=== PATIENT | female | born 1950 | race Caucasian/White ===

== ENCOUNTER 2018-03-08 10:24 | Emergency (ER) | payer MEDICARE, OTHER ==
[2018-03-08 10:52] LABS: BASOPHILS % (AUTO) 0.7 % (0.0-5.0); EOSINOPHILS % (AUTO) 3.6 % (0.0-8.0); HEMATOCRIT 45.3 % (36-48); LYMPHOCYTES % (AUTO) 27.4 % (21.0-51.0); MEAN CORPUSCULAR HEMOGLOBIN 30.5 pg (27.0-33.0); MEAN CORPUSCULAR HGB CONC 33.4 g/dL (32.0-36.0); MEAN CORPUSCULAR VOLUME 91.2 fL (79-99); MONOCYTES % (AUTO) 9.9 % (3.0-13.0); NEUTROPHILS % (AUTO) 58.4 % (40.0-77.0); PLATELET COUNT (AUTO) 243 K/uL (130-400); RED BLOOD CELL COUNT(AUTO) 4.97 MIL/uL (4.00-5.50); RED CELL DISTRIBUTION WIDTH 14.1 % (11.0-15.5); WHITE BLOOD COUNT (AUTO) 4.7 K/uL (4.8-10.8)
[2018-03-08 11:10] LABS: CREATININE 0.7 mg/dL (0.5-1.5); POTASSIUM 4.4 mmol/L (3.5-5.1)
[2018-03-08 11:13] LABS: B-TYPE NATRIURETIC PEPTIDE 42 pg/mL (0-100)
[2018-03-08] MEDS ORDERED: ASPIRIN 325 MG TABLET ONE (11:19)
[2018-03-08] MEDS ORDERED: MORPHINE SULFATE 4 MG/1ML SYG ONE (11:20)
[2018-03-08] MEDS ORDERED: ACETAMINOPHEN EXTRA STRENGTH 500 MG TABLET ONE (11:20)
[2018-03-08 11:21] LABS: INR 0.96 (0.85-1.15); PROTHROMBIN TIME 10.1 SEC (9.6-11.6)
[2018-03-08 11:25] LABS: ALBUMIN 3.6 g/dL (3.5-5.0); BILIRUBIN,TOTAL 0.3 mg/dL (0.2-1.0); CREATINE KINASE MB 1.2 ng/mL (0.5-3.6); TOTAL PROTEIN, SERUM 6.9 g/dL (6.0-8.3)
[2018-03-08] MEDS ORDERED: ONDANSETRON HCL MDV 20ML 2 MG/ML VIAL ONE (12:45)
== END 2018-03-08 13:13 | disposition home or self-care (01) ==
LOC: EDH 10:24
DX: R07.89 Other chest pain (principal); J44.9 Chronic obstructive pulmonary disease, unspecified; I25.10 Atherosclerotic heart disease of native coronary artery without angina pectoris; E11.9 Type 2 diabetes mellitus without complications; Z90.710 Acquired absence of both cervix and uterus; Z90.49 Acquired absence of other specified parts of digestive tract; Z72.0 Tobacco use
CPT/HCPCS: 36415; 71045; 80053; 82550; 82553; 83874; 83880; 84484; 85025; 85610; 85730; 93005; 94761; 96374; 96375; 99285; J2270

== ENCOUNTER → 2019-07-23 | Outpatient (CLI) | payer MEDICARE, OTHER | END | disposition home or self-care (01) | LOC: OIH 15:09 | PROVIDERS: ATTEND Internal Medicine | DX: I10 Essential (primary) hypertension (principal) | CPT/HCPCS: 71046 ==

== ENCOUNTER 2023-09-30 10:22 | Observation (INO) | payer MEDICARE, OTHER ==
[~2023-09-30] VITALS: Ht 160 cm; Wt 62.4 kg
[2023-09-30 11:14] LABS: BASOPHILS # (AUTO) 0.03 K/uL (0.00-0.20); BASOPHILS % (AUTO) 0.5 % (0.0-5.0); EOSINOPHILS # (AUTO) 0.13 K/uL (0.00-0.70); EOSINOPHILS % (AUTO) 2.2 % (0.0-8.0); HEMATOCRIT 44.5 % (36-48); LYMPHOCYTES # (AUTO) 1.4 K/uL (1.0-4.8); LYMPHOCYTES % (AUTO) 24.1 % (21.0-51.0); MEAN CORPUSCULAR HEMOGLOBIN 30.8 pg (27.0-33.0); MEAN CORPUSCULAR HGB CONC 33.5 g/dL (32.0-36.0); MEAN CORPUSCULAR VOLUME 91.9 fL (79-99); MONOCYTES # (AUTO) 0.5 K/uL (0.1-1.0); MONOCYTES % (AUTO) 8.3 % (3.0-13.0); NEUTROPHILS # (AUTO) 3.7 K/uL (1.8-7.7); NEUTROPHILS % (AUTO) 63.2 % (40.0-77.0); PLATELET COUNT (AUTO) 263 K/uL (130-400); RED BLOOD CELL COUNT(AUTO) 4.84 MIL/uL (4.00-5.50); RED CELL DISTRIBUTION WIDTH 12.7 % (11.0-15.5); WHITE BLOOD COUNT (AUTO) 5.9 K/uL (4.8-10.8)
[2023-09-30 11:52] LABS: ALBUMIN 3.3 g/dL (3.5-5.0); BILIRUBIN,TOTAL 0.3 mg/dL (0.2-1.0); CREATININE 0.7 mg/dL (0.5-1.5); POTASSIUM 3.9 mmol/L (3.5-5.1); TOTAL PROTEIN, SERUM 6.3 g/dL (6.0-8.3)
[2023-09-30 14:15] LABS: ADD UA MICROSCOPIC YES; APPEARANCE,URINE CLEAR (CLEAR); BILIRUBIN,URINE NEGATIVE (NEGATIVE); COLOR,URINE LIGHT-YELLOW (YELLOW); GLUCOSE, URINE (UA) >=1000 mg/dL (NEGATIVE); KETONES,URINE NEGATIVE (NEGATIVE); LEUKOCYTE ESTERASE ,URINE NEGATIVE Leu/uL (NEGATIVE); NITRATE,URINE NEGATIVE (NEGATIVE); OCCULT BLOOD,URINE NEGATIVE (NEGATIVE); PROTEIN,URINE 30 mg/dL (NEGATIVE); UROBILINOGEN,URINE 0.2 mg/dL (0.2-1.0)
[2023-09-30 14:16] LABS: MUCUS,URINE RARE LPF (None Seen); RBC,URINE 0-1 /HPF (0-1); SQUAMOUS EPITHELIAL CELL,UR RARE /HPF (0-2); WBC,URINE 0-1 /HPF (0-1)
[2023-09-30] MEDS ORDERED: REPA2TAB8 PO (16:19)
[2023-09-30] MEDS ORDERED: ROPI1TAB46 PO (16:19)
[2023-09-30] MEDS ORDERED: METO-408 PO (16:19)
[2023-09-30] MEDS ORDERED: ATOR20TA65 PO (16:19)
[2023-09-30] MEDS ORDERED: AMLO1CAP87 PO (16:19)
[2023-09-30] MEDS ORDERED: METF-527 PO (16:19)
[2023-09-30] MEDS ORDERED: INSLAN SQ (16:19)
[2023-09-30] MEDS ORDERED: HYDR12.54 PO (16:19)
[2023-09-30] MEDS ORDERED: ASPIRIN 325MG TAB PO ONE (16:30)
[2023-09-30] MEDS ORDERED: ENOXAPARIN SODIUM 60 MG/0.6 ML SQ ONE (16:30)
[2023-09-30] MEDS ORDERED: CLOPIDOGREL 75MG TAB ONE (16:30)
[2023-09-30] MEDS: REPAGLINIDE 1 MG TAB PO SCH (17:00)
[2023-09-30] MEDS: METFORMIN HCL 1000 MG PO SCH (20:47)
[2023-09-30] MEDS ORDERED: ENOXAPARIN SODIUM 80 MG/0.8 ML SQ ONE (21:00)
[2023-09-30] MEDS: ROPINIROLE HCL 1 MG TABLET PO SCH (21:08)
[2023-09-30 21:26] VITALS: BP 156/76; PULSE 81; RESP 16
[2023-09-30] MEDS ORDERED: AMLODIPINE 2.5 MG TAB PO SCH (22:00)
[2023-09-30 23:00] VITALS: BP 153/67; PULSE 80; RESP 18
[2023-10-01] MEDS ORDERED: NITROGLYCERIN 0.4 MG SL TAB SL PRN (00:30)
[2023-10-01] MEDS ORDERED: NITR0.4T50 SL (00:30)
[2023-10-01] MEDS ORDERED: NITROGLYCERIN 0.4 MG SL TAB SL ONE (00:31)
[2023-10-01] MEDS ORDERED: AMLO1CAP88 PO (02:00)
[2023-10-01 03:00] VITALS: BP 148/88; PULSE 64; RESP 16
[2023-10-01] MEDS: REPAGLINIDE 1 MG TAB PO SCH ×3 (05:40→17:49)
[2023-10-01] MEDS ORDERED: ACETAMINOPHEN 325 MG TAB PO PRN (06:30)
[2023-10-01] MEDS ORDERED: LORAZEPAM 2 MG/ML 1 ML VIAL IVP ONE (07:00)
[2023-10-01 08:00] VITALS: BP 151/86; PULSE 60; RESP 18; O2SAT 98
[2023-10-01] MEDS ORDERED: [UNRECOGNIZED DRUG - OTHER] PO SCH (09:00)
[2023-10-01] MEDS ORDERED: BENAZEPRIL HCL 10 MG TABLET PO SCH (09:00)
[2023-10-01] MEDS ORDERED: LIDOCAINE 5% TOPICAL PATCH TP SCH (09:00)
[2023-10-01] MEDS ORDERED: HYDROCHLOROTHIAZIDE 25 MG TABLET PO SCH (09:00)
[2023-10-01] MEDS: METFORMIN HCL 1000 MG PO SCH ×2 (09:00→20:38)
[2023-10-01] MEDS ORDERED: ATORVASTATIN 20 MG TABLET PO SCH (09:00)
[2023-10-01] MEDS ORDERED: CLOPIDOGREL 75MG TAB PO SCH (09:00)
[2023-10-01] MEDS ORDERED: AMLODIPINE BESYLATE PO SCH (09:00)
[2023-10-01] MEDS ORDERED: INSULIN GLARGINE 100 UNITS/ML 10 ML VIAL SQ SCH (09:00)
[2023-10-01] MEDS ORDERED: METOPROLOL SUCCINATE 25 MG TAB.SR.24H PO SCH (09:00)
[2023-10-01] MEDS ORDERED: BENAZEPRIL PO SCH (09:00)
[2023-10-01] MEDS ORDERED: NON-FORMULARY MEDICATION 1 EACH (Hydrochlorothiazide 12.5 MG) PO SCH (09:00)
[2023-10-01] MEDS ORDERED: AMLODIPINE 2.5 MG TAB PO SCH (09:00)
[2023-10-01] MEDS ORDERED: REGADENOSON 0.4 MG/5 ML PF SYG IVP SCH (09:15)
[2023-10-01 12:00] VITALS: BP 149/79; PULSE 61; RESP 18
[2023-10-01 16:00] VITALS: BP 160/63; PULSE 69; RESP 18
[2023-10-01 20:00] VITALS: BP 163/71; PULSE 60; RESP 18
[2023-10-01] MEDS: ROPINIROLE HCL 1 MG TABLET PO SCH (20:35)
[2023-10-01] MEDS: INSULIN HUMULIN R 100 UNIT/ML 3ML SQ SCH (20:38)
[2023-10-01] MEDS ORDERED: AMLODIPINE-BENAZEPRIL 5-10 MG PO SCH (21:00)
[2023-10-01 21:04] VITALS: O2SAT 93
[2023-10-02 01:11] VITALS: BP 123/60; PULSE 69; RESP 18
[2023-10-02 04:25] LABS: BASOPHILS # (AUTO) 0.02 K/uL (0.00-0.20); BASOPHILS % (AUTO) 0.4 % (0.0-5.0); EOSINOPHILS % (AUTO) 1.8 % (0.0-8.0); HEMATOCRIT 43.1 % (36-48); IMMATURE GRANULOCYTE ABSOLUTE 0.01 K/uL (0-1); LYMPHOCYTES # (AUTO) 1.7 K/uL (1.0-4.8); LYMPHOCYTES % (AUTO) 30.3 % (21.0-51.0); MEAN CORPUSCULAR HEMOGLOBIN 30.8 pg (27.0-33.0); MEAN CORPUSCULAR HGB CONC 34.1 g/dL (32.0-36.0); MEAN CORPUSCULAR VOLUME 90.4 fL (79-99); MONOCYTES # (AUTO) 0.5 K/uL (0.1-1.0); MONOCYTES % (AUTO) 8.6 % (3.0-13.0); NEUTROPHILS # (AUTO) 3.3 K/uL (1.8-7.7); NEUTROPHILS % (AUTO) 58.7 % (40.0-77.0); PLATELET COUNT (AUTO) 283 K/uL (130-400); RED BLOOD CELL COUNT(AUTO) 4.77 MIL/uL (4.00-5.50); RED CELL DISTRIBUTION WIDTH 12.7 % (11.0-15.5); WHITE BLOOD COUNT (AUTO) 5.6 K/uL (4.8-10.8)
[2023-10-02 04:33] LABS: CREATININE 0.6 mg/dL (0.5-1.5); POTASSIUM 3.8 mmol/L (3.5-5.1)
[2023-10-02] MEDS: INSULIN HUMULIN R 100 UNIT/ML 3ML SQ SCH (04:38)
[2023-10-02 04:47] VITALS: BP 148/66; PULSE 79; RESP 18
== END 2023-10-02 08:20 | disposition home or self-care (01) ==
LOC: EDH 10:22 → EDHIP 16:09 → 4BH 21:29
PROVIDERS: ADMIT Internal Medicine; ATTEND Internal Medicine
DX: I25.110 Atherosclerotic heart disease of native coronary artery with unstable angina pectoris (principal); R07.89 Other chest pain; I10 Essential (primary) hypertension; E11.9 Type 2 diabetes mellitus without complications; J44.9 Chronic obstructive pulmonary disease, unspecified; M47.812 Spondylosis without myelopathy or radiculopathy, cervical region; E78.5 Hyperlipidemia, unspecified; Z87.891 Personal history of nicotine dependence; Z90.710 Acquired absence of both cervix and uterus; Z95.5 Presence of coronary angioplasty implant and graft; Z90.49 Acquired absence of other specified parts of digestive tract; Z79.84 Long term (current) use of oral hypoglycemic drugs; Z79.4 Long term (current) use of insulin; Z79.01 Long term (current) use of anticoagulants; Z79.82 Long term (current) use of aspirin; Z79.02 Long term (current) use of antithrombotics/antiplatelets; Z95.1 Presence of aortocoronary bypass graft
CPT/HCPCS: 96372; 99285; 82550 ×2; 84484 ×4; 80053; 85025 ×2; 81001; 36415 ×3; 71045; 93005 ×2; 96374; 82948 ×5; 93017; 78452; 72141; 80048; G0378 ×37; J1650; J2060; J2785; A9500 ×2

== ENCOUNTER → 2024-07-02 | Outpatient (CLI) | payer OTHER ==
[~2024-07-02] MED LIST: AMLO1CAP88 PO; ATOR20TA65 PO; HYDR12.54 PO; INSLAN SQ; METF-527 PO; METO-408 PO; REPA2TAB8 PO; ROPI1TAB46 PO
== END | disposition home or self-care (01) ==
LOC: RAH 10:48
PROVIDERS: ATTEND Internal Medicine
DX: J44.9 Chronic obstructive pulmonary disease, unspecified (principal); R05.9 Cough, unspecified
CPT/HCPCS: 71046